=== PATIENT | male | born 2000 | race Caucasian/White ===

== ENCOUNTER 2018-11-04 17:22 | Emergency (ER) | payer BC ==
[2018-11-04 17:41] VITALS: BP 122/61
--- NOTE | 2018-11-04 18:08 | UC ---
Throat Pain/Nasal Bridger HPI - HPI Summary HPI Summary: 18 yo male with mild sore throat x 1-2 days no fever no CORDOVA or myalgias He wants to get tested for strep because he is planning a trip no n/v/d - History of Current Complaint Chief Complaint: UCGeneralIllness Stated Complaint: SORE THROAT Time Seen by Provider: 11/04/18 17:51 Hx Obtained From: Patient Onset/Duration: Gradual Onset Severity: Mild Pain Intensity: 4 Pain Scale Used: 0-10 Numeric Related History: Prior ENT Surgery, T & A - Epiglottits Risk Factors Epiglottis Risk Factors: Negative - Allergies/Home Medications Allergies/Adverse Reactions: Allergies Allergy/AdvReac Type Severity Reaction Status Date / Time No Known Allergies Allergy Verified 11/04/18 17:34 Home Medications: Home Medications Chlorpheniramine/Dextromethorp [Coricidin Hbp Cough & Col] 2 tab PO ONCE PRN 04/16 [History Confirmed 11/04/18] Ibuprofen TAB* [Advil TAB*] 400 mg PO Q6H PRN 11/04/18 [History Confirmed ] PMH/Surg Hx/FS Hx/Imm Hx Previously Healthy: Yes - Surgical History Surgical History: Yes Surgery Procedure, Year, and Place: Tooth removed/jaw infection - Family History Known Family History: Positive: Hypertension - Social History Alcohol Use: Weekly Substance Use Type: Marijuana Smoking Status (MU): Never Smoked Tobacco Review of Systems All Other Systems Reviewed And Are Negative: Yes Constitutional: Positive: Negative Skin: Positive: Negative Eyes: Positive: Negative ENT: Positive: Sore Throat Respiratory: Positive: Negative Cardiovascular: Positive: Negative Gastrointestinal: Positive: Negative Genitourinary: Positive: Negative Motor: Positive: Negative Neurovascular: Positive: Negative Musculoskeletal: Positive: Negative Neurological: Positive: Negative Psychological: Positive: Negative Physical Exam Triage Information Reviewed: Yes Appearance: Well-Appearing, No Pain Distress, Well-Nourished Vital Signs: Initial Vital Signs Temp 98.3 F 11/04/18 17:38 Pulse 60 11/04/18 17:38 Resp 16 11/04/18 17:38 BP 122/61 11/04/18 17:38 Pulse Ox 98 11/04/18 17:38 Vital Signs Reviewed: Yes Eyes: Positive: Conjunctiva Clear ENT: Positive: Pharyngeal erythema, Uvula midline. Negative: Nasal congestion, Nasal drainage, TMs normal, Tonsillar swelling, Tonsillar exudate, Trismus, Muffled voice, Hoarse voice, Sinus tenderness Neck: Positive: Supple, Nontender, No Lymphadenopathy Respiratory: Positive: Lungs clear, Normal breath sounds, No respiratory distress, No accessory muscle use Cardiovascular: Positive: RRR, No Murmur Musculoskeletal: Positive: No Edema Neurological: Positive: Alert Psychological Exam: Normal Skin Exam: Normal Throat Pain/Nasal Course/Dx - Course Course Of Treatment: strep (-) - Differential Dx/Diagnosis Provider Diagnosis: Pharyngitis Discharge - Sign-Out/Discharge Documenting (check all that apply): Patient Departure All imaging exams completed and their final reports reviewed: No Studies - Discharge Plan Condition: Stable Disposition: HOME Patient Education Materials: Pharyngitis (ED) Referrals: No Primary Care Phys,NOPCP [Primary Care Provider] - Additional Instructions: strep (-) recheck for high fever/worsening pain or if not better in 4 days - Billing Disposition and Condition Condition: STABLE Disposition: Home
== END 2018-11-04 18:22 | disposition home or self-care (01) ==
LOC: UCCORT 17:22
DX: J02.9 Acute pharyngitis, unspecified (principal)
CPT/HCPCS: 87651; 99201; G0463

== ENCOUNTER 2018-11-13 13:34 | Emergency (ER) | payer BC ==
[2018-11-13 13:51] VITALS: BP 117/103
--- NOTE | 2018-11-13 14:02 | ED ---
GI/ HPI - HPI Summary HPI Summary: 18 yr old with the complaint of dysuria. Onset about 4-5 days. He has had the same sexual partner for the past couple of months. He denies drainage, denies scrotal or testicular pain. He denies any change in appearance of the genitals. He has not had rashes or lesions. He denies flank pain, fever, chills. - History of Current Complaint Chief Complaint: UCGU Time Seen by Provider: 11/13/18 13:51 Stated Complaint: PERSONAL Pain Intensity: 3 - Allergy/Home Medications Allergies/Adverse Reactions: Allergies Allergy/AdvReac Type Severity Reaction Status Date / Time No Known Allergies Allergy Verified 11/13/18 13:50 Home Medications: Home Medications NK [No Home Medications Reported] 11/13/18 [History Confirmed 11/13/18] PMH/Surg Hx/FS Hx/Imm Hx - Surgical History Surgery Procedure, Year, and Place: Tooth removed/jaw infection Infectious Disease History: No Infectious Disease History: Reports: Traveled Outside the [place] in Last 30 Days - Family History Known Family History: Positive: Hypertension - Social History Occupation: Student Alcohol Use: Weekly Substance Use Type: Reports: Marijuana Smoking Status (MU): Never Smoked Tobacco Review of Systems Constitutional: Negative Positive: dysuria. Negative: discharge All Other Systems Reviewed And Are Negative: Yes Physical Exam Triage Information Reviewed: Yes Vital Signs On Initial Exam: Initial Vitals Temp Pulse Resp BP Pulse Ox 97.7 F 64 18 117/103 99 11/13/18 13:45 11/13/18 13:45 11/13/18 13:45 11/13/18 13:45 11/13/18 13:45 Vital Signs Reviewed: Yes Appearance: Positive: Well-Appearing, No Pain Distress Skin: Positive: Warm, Skin Color Reflects Adequate Perfusion Head/Face: Positive: Normal Head/Face Inspection Eyes: Positive: EOMI, [place] ENT: Positive: Normal ENT inspection Neck: Positive: Nontender Respiratory/Lung Sounds: Positive: Clear to Auscultation, Breath Sounds Present Cardiovascular: Positive: RRR. Negative: Murmur Abdomen Description: Negative: Distended Male Genital Exam: Positive: Normal Genitalia, No Hernia. Negative: Erythema, Hernia Mass, Lesions, Scrotum Tenderness (R), Scrotum Tenderness (L), Testicular Tenderness (R), Testicular Tenderness (L), Urethral Discharge Musculoskeletal: Positive: Strength/ROM Intact Neurological: Positive: Sensory/Motor Intact, Alert, Oriented to Person Place, Time, CN Intact II-III, Normal Gait, Speech Normal Psychiatric: Positive: Normal Diagnostics - Vital Signs Vital Signs Temp Pulse Resp BP Pulse Ox 11/13/18 13:45 97.7 F 64 18 117/103 99 - Laboratory Lab Statement: Any lab studies that have been ordered have been reviewed, and results considered in the medical decision making process. GIGU Course/Dx - Course Course Of Treatment: 18 yr old with dysuria. Will check UA and send off testing for STDs. - Diagnoses Provider Diagnoses: Dysuria Discharge - Sign-Out/Discharge Documenting (check all that apply): Patient Departure All imaging exams completed and their final reports reviewed: No Studies - Discharge Plan Condition: Good Disposition: HOME Patient Education Materials: Dysuria (ED) Referrals: No Primary Care Phys,NOPCP [Primary Care Provider] - [facility] [place] [Outside] - Billing Disposition and Condition Condition: GOOD Disposition: Home
[2018-11-17 16:16] LABS: Neisseria gonorrhoeae (GC) RNA Negative (Negative)
== END 2018-11-13 14:25 | disposition home or self-care (01) ==
LOC: UCCORT 13:34
DX: R30.0 Dysuria (principal)
CPT/HCPCS: 36415; 81003; 86703; 86780; 87491; 87591; 99211; G0463

== ENCOUNTER 2019-04-27 13:54 | Emergency (ER) | payer BC ==
[2019-04-27 14:59] VITALS: BP 121/64
--- NOTE | 2019-04-27 15:14 | UC ---
UC General HPI - HPI Summary HPI Summary: pt is c/o an itchy rash to the sides of his groin for about 2 weeks. no urethral discharge, ulcerations/vesicles or burning with urination. no testicular pain or scrotal swelling. tx'ing with otc antifungals. it gets a little better then worsens again. no hx MRSA. - History of Current Complaint Chief Complaint: UCSkin Stated Complaint: SKIN CONCERN Time Seen by Provider: 04/27/19 15:07 Hx Obtained From: Patient Pain Intensity: 0 Associated Signs & Symptoms: Negative: Fever - Allergy/Home Medications Allergies/Adverse Reactions: Allergies Allergy/AdvReac Type Severity Reaction Status Date / Time No Known Allergies Allergy Verified 04/27/19 14:48 Home Medications: Home Medications Omeprazole 20 mg PO DAILY 04/27/19 [History Confirmed 04/27/19] PMH/Surg Hx/FS Hx/Imm Hx GI/ History: Gastroesophageal Reflux - Surgical History Surgical History: Yes Surgery Procedure, Year, and Place: Tooth removed/jaw infection - Family History Known Family History: Positive: Hypertension - Social History Alcohol Use: Weekly Substance Use Type: None Smoking Status (MU): Never Smoked Tobacco Review of Systems All Other Systems Reviewed And Are Negative: No Constitutional: Negative: Fever, Chills Skin: Positive: Rash - groin Genitourinary: Negative: Dysuria, Hematuria, Frequency, Urgency, Vaginal/Penile Burning, Vaginal/Penile Discharge, Vaginal/Penile Pain, Ulceration/Lesion Physical Exam Triage Information Reviewed: Yes Appearance: Well-Appearing Vital Signs: Initial Vital Signs Temp 98 F 04/27/19 14:50 Pulse 53 04/27/19 14:50 Resp 16 04/27/19 14:50 BP 121/64 04/27/19 14:50 Pulse Ox 100 04/27/19 14:50 Vital Signs Reviewed: Yes Eyes: Positive: Conjunctiva Clear ENT: Positive: Normal ENT inspection Neck: Positive: Supple Respiratory: Positive: Lungs clear Cardiovascular: Positive: RRR Abdomen Description: Positive: Nontender, No Organomegaly, Soft, Other: - ? slight inguinal adenopathy but pt denies tenderness. Bowel Sounds: Positive: Present Male Genital Exam: Positive: Other - : genital area is shaved and tiny follicular pimples/pustules noted in that area especially to the sides of groing. there is no other erythema or maceration. there is no vesicles or ulcerations. there is a single tiny <1mm pimle on shaft of penis, rest of penis is inremarkable. no urethral discharge. No testicular swelling or tenderness including cords. inguinal canals are patent. Neurological: Positive: Alert Psychological: Positive: Age Appropriate Behavior Skin Exam: Normal Course/Dx - Differential Dx - Multi-Symptom Differential Diagnoses: Other - exam is c/w a folliculitis. no concern for herpes. other cultures are pending at pt's request but he has non s/s's of a urethritis or uti. - Diagnoses Provider Diagnosis: Folliculitis Discharge ED - Sign-Out/Discharge Documenting (check all that apply): Patient Departure All imaging exams completed and their final reports reviewed: No Studies - Discharge Plan Condition: Stable Disposition: HOME Prescriptions: Cephalexin CAP* [Keflex CAP*] 500 mg PO TID 10 Days #30 cap Patient Education Materials: Folliculitis (ED) Referrals: [facility] [Outside] Additional Instructions: FOLLOW UP IN 5-7 DAYS FOR A RECHECK OR SOONER FOR ANY CHANGES OR WORSENING. STOP SHAVING THE AREA AND DISPOSE OF LAST RAZOR USED. WASH THE AREA WITH GENTLE SOAP AND RINSE WITH WATER DAILY. - Billing Disposition and Condition Condition: STABLE Disposition: Home
[2019-04-28 13:06] LABS: Chlamydia trachomatis NAA Negative (Negative); Neisseria gonorrhoeae (GC) NAA Negative (Negative)
[2019-04-29 17:50] LABS: Trichomonas vaginalis SOURCE: Urine (Male Patient)
== END 2019-04-27 15:51 | disposition home or self-care (01) ==
LOC: UCCORT 13:54
DX: L73.9 Follicular disorder, unspecified (principal); K21.9 Gastro-esophageal reflux disease without esophagitis
CPT/HCPCS: 87491; 87591; 87661; 99212; G0463

== ENCOUNTER 2019-08-29 13:42 | Emergency (ER) | payer BC ==
[2019-08-29 15:05] VITALS: BP 128/74
--- NOTE | 2019-08-29 15:25 | UC ---
Throat Pain/Nasal Bridger HPI - HPI Summary HPI Summary: 19-year-old male comes in with a chief complaint of sore throat 3 days. It hurts when he swallows. He's been trying [id number] medications was to help some with the symptoms. No fevers. Does have some sensation of postnasal drip. No anterior rhinorrhea. No cough or chest congestion. - History of Current Complaint Chief Complaint: UCRespiratory Stated Complaint: ST/CONGESTION Time Seen by Provider: 08/29/19 14:53 Pain Intensity: 7 - Allergies/Home Medications Allergies/Adverse Reactions: Allergies Allergy/AdvReac Type Severity Reaction Status Date / Time No Known Allergies Allergy Verified 08/29/19 15:05 PMH/Surg Hx/FS Hx/Imm Hx Previously Healthy: Yes - Surgical History Surgical History: Yes Surgery Procedure, Year, and Place: Tooth removed/jaw infection Other Surgical History: T & A - Family History Known Family History: Positive: Hypertension - Social History Alcohol Use: Weekly Substance Use Type: None Smoking Status (MU): Never Smoked Tobacco Review of Systems All Other Systems Reviewed And Are Negative: Yes Constitutional: Positive: Other - see hpi Skin: Positive: Negative Eyes: Positive: Negative ENT: Positive: Sore Throat, Nasal Discharge Respiratory: Positive: Negative Cardiovascular: Positive: Negative Gastrointestinal: Positive: Negative Motor: Positive: Negative Neurovascular: Positive: Negative Musculoskeletal: Positive: Negative Neurological: Positive: Negative Psychological: Positive: Negative Is Patient Immunocompromised?: No Physical Exam Triage Information Reviewed: Yes Appearance: Well-Appearing, No Pain Distress, Well-Nourished Vital Signs: Initial Vital Signs Temp 98.3 F 08/29/19 15:02 Pulse 70 08/29/19 15:02 Resp 16 08/29/19 15:02 BP 128/74 08/29/19 15:02 Pulse Ox 98 08/29/19 15:02 Vital Signs Reviewed: Yes Eye Exam: Normal Eyes: Positive: Conjunctiva Clear ENT: Positive: Pharyngeal erythema, Nasal drainage Neck: Positive: Supple Respiratory: Positive: Lungs clear, Normal breath sounds, No respiratory distress Cardiovascular: Positive: RRR Musculoskeletal: Positive: Strength Intact, ROM Intact Neurological: Positive: Alert, Muscle Tone Normal Psychological: Positive: Age Appropriate Behavior Skin Exam: Normal Throat Pain/Nasal Course/Dx - Differential Dx/Diagnosis Provider Diagnosis: Strep pharyngitis Discharge ED - Sign-Out/Discharge Documenting (check all that apply): Patient Departure All imaging exams completed and their final reports reviewed: No Studies - Discharge Plan Condition: Stable Disposition: HOME Prescriptions: Amoxicillin PO (*) [Amoxicillin 875 MG (*)] 875 mg PO BID #20 tab Patient Education Materials: Strep Throat (ED) Referrals: [facility] [Outside] Additional Instructions: FOLLOW UP WITH YOUR DOCTOR IF NOT COMPLETELY IMPROVED. GET REEVALUATED SOONER IF NOT IMPROVING OR WORSE OR ANY QUESTIONS OR CONCERNS. - Billing Disposition and Condition Condition: STABLE Disposition: Home
== END 2019-08-29 15:50 | disposition home or self-care (01) ==
LOC: UCCORT 13:42
DX: J02.0 Streptococcal pharyngitis (principal); R09.81 Nasal congestion
CPT/HCPCS: 87651; 99212; G0463

== ENCOUNTER 2019-09-10 16:03 | Emergency (ER) | payer BC ==
[2019-09-10 16:49] VITALS: BP 125/75
--- NOTE | 2019-09-10 17:21 | UC ---
Skin Complaint HPI - HPI Summary HPI Summary: 19-year-old college male who has a rash which has improved today. He just finished amoxicillin earlier this week for strep pharyngitis. He no longer has a sore throat and no symptoms of completely resolved. He did change laundry detergent over the past 2 days and feels this may be the cause of the rash. - History of Current Complaint Chief Complaint: UCSkin Time Seen by Provider: 09/10/19 16:47 Stated Complaint: RASH Hx Obtained From: Patient Onset/Duration: Gradual Onset Skin Exposure Onset/Duration: Days Ago Timing: Constant Onset Severity: Mild Current Severity: Mild Pain Intensity: 0 Location: Other Character: Pruritus - Mostly on his arms and lower legs. Very minimal itchiness. Aggravating Factor(s): Nothing - Patient thinks perhaps he has the reaction because of new laundry detergent. Alleviating Factor(s): Other - Patient took a Xyzol which he states improved the rash. Associated Signs & Symptoms: Positive: Rash Related History: Other: - Possible reaction to amoxicillin, possible reaction to new laundry detergent. He has had amoxicillin in the past without any adverse reaction. - Allergy/Home Medications Allergies/Adverse Reactions: Allergies Allergy/AdvReac Type Severity Reaction Status Date / Time amoxicillin Allergy Rash Verified 09/10/19 16:45 Home Medications: Home Medications NK [No Home Medications Reported] 09/10/19 [History Confirmed 09/10/19] PMH/Surg Hx/FS Hx/Imm Hx Previously Healthy: Yes - Surgical History Surgical History: Yes Surgery Procedure, Year, and Place: Tooth removed/jaw infection Other Surgical History: T & A - Family History Known Family History: Positive: Hypertension - Social History Occupation: Student Lives: Dormitory/Roommates Alcohol Use: Weekly Substance Use Type: None Smoking Status (MU): Never Smoked Tobacco Review of Systems All Other Systems Reviewed And Are Negative: Yes Skin: Positive: Rash - Rash mostly on arms and legs however he states is hardly noticeable now and has improved. Is Patient Immunocompromised?: No Physical Exam Triage Information Reviewed: Yes Appearance: Well-Appearing, No Pain Distress, Well-Nourished Vital Signs: Initial Vital Signs Temp 97.3 F 09/10/19 16:46 Pulse 52 09/10/19 16:46 Resp 16 09/10/19 16:46 BP 125/75 09/10/19 16:46 Pulse Ox 99 02/13/20 16:46 Vital Signs Reviewed: Yes Eyes: Positive: Conjunctiva Clear ENT: Positive: Pharynx normal, TMs normal, Uvula midline Neck: Positive: Supple, Nontender, No Lymphadenopathy Respiratory: Positive: Lungs clear, Normal breath sounds, No respiratory distress, No accessory muscle use Cardiovascular: Positive: RRR, No Murmur, Pulses Normal, Brisk Capillary Refill Musculoskeletal Exam: Normal Neurological Exam: Normal Psychological Exam: Normal Skin: Positive: Rashes - The patient has just very small areas of rash on his lower legs and arms however it's almost completely resolved. It is not itchy at this point time. Course/Dx - Course Course Of Treatment: The patient is comfortable here and in no distress. He did request another strep test which was done and was negative. I don't feel this is an allergic reaction to amoxicillin however more to his change in laundry detergent. I advised him to take Benadryl however he wants to drink alcohol tonight and I advised him several times not to mix alcohol with any kind of medications. He is to follow-up at the [facility] if no improvement or if he continues to have the rash by early next week. He has returned back to his previous laundry detergent and has re-washed all of his clothing. - Diagnoses Provider Diagnosis: Rash and nonspecific skin eruption Discharge ED - Sign-Out/Discharge Documenting (check all that apply): Patient Departure All imaging exams completed and their final reports reviewed: No Studies - Discharge Plan Condition: Good Disposition: HOME Patient Education Materials: Urticaria (ED) Referrals: No Primary Care Phys,NOPCP [Primary Care Provider] - [facility] ORELLANA [[facility]BUSINESS, APPLICATION, OTHER] - Additional Instructions: Take Benadryl 25 mg to 50 mg every 6 hours as needed for itching or for rash. Do not drink alcohol while you're taking medication. Follow up at the [facility] if no improvement by Saturday. If you develop any facial swelling, throat closing or difficulty breathing your to go to the emergency room for further treatment. - Billing Disposition and Condition Condition: GOOD Disposition: Home
== END 2019-09-10 17:50 | disposition home or self-care (01) ==
LOC: UCCORT 16:03
DX: R21 Rash and other nonspecific skin eruption (principal); Z88.0 Allergy status to penicillin
CPT/HCPCS: 87651; 99211; G0463